=== PATIENT | female | born 1970 | race Caucasian/White ===

== ENCOUNTER 2016-12-18 18:38 | Emergency (ER) | payer OTHER ==
[2016-12-18 19:49] VITALS: BP 132/80
--- NOTE | 2016-12-18 20:41 | UC ---
Throat Pain/Nasal John HPI - HPI Summary HPI Summary: 46 year old female with complaints of sudden onset of fever, chills, headache, sore throat, body aches and cough 2 days ago. States her boss has the flu and her adult daughter has recently had strep throat. Vomit x 1 today but has since been keeping down fluids Last dose of tylenol was at 3 pm - History of Current Complaint Chief Complaint: UCRespiratory Stated Complaint: SORE THROAT,CONGESTION Time Seen by Provider: 12/18/16 20:32 Hx Obtained From: Patient Hx Last Menstrual Period: 05/18/15 ?: No Onset/Duration: Sudden Onset, Lasting Days - 2, Still Present Severity: Moderate Cough: Nonproductive Associated Signs & Symptoms: Positive: Dysphagia, Nasal Discharge, Fever. Negative: FB Sensation, Drooling, Wheezing, Hoarseness, Sinus Discomfort, Vomiting, Rash Related History: Smoking - Epiglottits Risk Factors Epiglottis Risk Factors: Negative - Allergies/Home Medications Allergies/Adverse Reactions: Allergies Allergy/AdvReac Type Severity Reaction Status Date / Time No Known Allergies Allergy Verified 12/18/16 19:49 Home Medications: Home Medications Multivitamins/Minerals TAB* [Thera M Plus TAB*] 1 tab PO DAILY 12/18/16 [ History Confirmed 12/18/16] PMH/Surg Hx/FS Hx/Imm Hx Previously Healthy: Yes Endocrine History Of: Denies: Diabetes Cardiovascular History Of: Denies: Cardiac Disorders Respiratory History Of: Denies: Asthma - Surgical History Surgical History: Yes Surgery Procedure, Year, and Place: tubaligation,. GASTRIC BYPASS SLEEVE AUG 2014. left shoulder removal of bone spurs. uterine ablation - Family History Known Family History: Negative: Hypertension - Social History Occupation: Employed Full-time Lives: With Family Alcohol Use: None Substance Use Type: None Smoking Status (MU): Current Every Day Smoker Type: Cigarettes Amount Used/How Often: 1/2 ppd Cessation Counseling: Patient Advised to Stop Review of Systems Constitutional: Fever Skin: Negative Eyes: Negative ENT: Sore Throat, Nasal Discharge Respiratory: Cough Cardiovascular: Negative Gastrointestinal: Negative Genitourinary: Negative Motor: Negative Neurovascular: Negative Musculoskeletal: Myalgia Neurological: Headache Psychological: Negative All Other Systems Reviewed And Are Negative: Yes Physical Exam Triage Information Reviewed: Yes Appearance: No Pain Distress, Well-Nourished, Ill-Appearing Vital Signs: Initial Vital Signs Temp 100.4 F 12/18/16 19:46 Pulse 121 12/18/16 19:46 Resp 16 12/18/16 19:46 BP 132/80 12/18/16 19:46 Pulse Ox 100 12/18/16 19:46 Vital Signs Reviewed: Yes Eyes: Positive: Conjunctiva Clear. Negative: Discharge ENT: Positive: Hearing grossly normal, Pharyngeal erythema - significant, Nasal congestion, TMs normal, Tonsillar swelling. Negative: Nasal drainage Neck: Positive: Supple, Nontender, Enlarged Nodes @ - ac Respiratory: Positive: Lungs clear, Normal breath sounds Cardiovascular: Positive: RRR, No Murmur Musculoskeletal: Positive: Strength Intact, ROM Intact Neurological: Positive: Alert, Muscle Tone Normal Psychological: Positive: Age Appropriate Behavior - pleasant and cooperative Skin: Negative: rashes, breakdown Throat Pain/Nasal Course/Dx - Course Course Of Treatment: Rapid Flu - negative. Rapid Strep - positive. Tylenol for pain and fever - Differential Dx/Diagnosis Differential Diagnosis/HQI/PQRI: Influenza, Pharyngitis, URI Provider Diagnoses: Strep Throat Discharge - Discharge Plan Condition: Stable Disposition: HOME Prescriptions: Amoxicillin CAP* 500 mg PO Q12H #20 cap Patient Education Materials: Strep Throat (ED), Amoxicillin (By mouth)
[2016-12-18] MEDS ORDERED: Acetaminophen TAB* 325 MG PO ONE (20:48)
[2016-12-18] MEDS ORDERED: Amoxicillin PO (*) 500 MG CAP PO ONE (21:01)
== END 2016-12-18 21:12 | disposition home or self-care (01) ==
LOC: UCCORT 18:38
DX: J02.0 Streptococcal pharyngitis (principal); Z98.84 Bariatric surgery status; F17.210 Nicotine dependence, cigarettes, uncomplicated
CPT/HCPCS: 87502; 87651; 99212; A9270-GY; G0463